=== PATIENT | female | born 1965 ===

== ENCOUNTER 2018-09-10 09:33 | Emergency (ER) | payer OTHER ==
[~2018-09-10] VITALS: Ht 167.6 cm; Wt 70.3 kg
[2018-09-10] MEDS ORDERED: METF500 PO (09:42)
[2018-09-10] MEDS ORDERED: ESCI20 PO (09:42)
[2018-09-10] MEDS ORDERED: LISI20 PO (09:42)
[2018-09-10] MEDS ORDERED: ATOR40TA PO (09:42)
[2018-09-10] MEDS ORDERED: CYCL10 PO (11:51)
[2018-09-10] MEDS ORDERED: IBUP600 PO (11:51)
== END 2018-09-10 12:01 | disposition home or self-care (01) ==
LOC: ER 09:33
DX: S16.1XXA Strain of muscle, fascia and tendon at neck level, initial encounter (principal); S46.911A Strain of unspecified muscle, fascia and tendon at shoulder and upper arm level, right arm, initial encounter; S80.01XA Contusion of right knee, initial encounter; V43.52XA Car driver injured in collision with other type car in traffic accident, initial encounter; Z88.5 Allergy status to narcotic agent; Z79.84 Long term (current) use of oral hypoglycemic drugs; Z79.899 Other long term (current) drug therapy; E11.9 Type 2 diabetes mellitus without complications; Z72.0 Tobacco use
CPT/HCPCS: 72040; 73030; 73562-RT; 99284-25

== ENCOUNTER → 2018-12-22 | Outpatient (CLI) | payer OTHER ==
[~2018-12-22] MED LIST: ATOR40TA PO; CYCL10 PO; ESCI20 PO; IBUP600 PO; LISI20 PO; METF500 PO
== END | disposition home or self-care (01) ==
LOC: LAB SHORT 16:41 → LAB 16:41
DX: N39.0 Urinary tract infection, site not specified (principal)
CPT/HCPCS: 87077; 87086; 87186